=== PATIENT | female | born 1980 | race Caucasian/White ===

== ENCOUNTER 2022-02-03 16:39 | Emergency (ER) | payer OTHER, SELFPAY ==
[2022-02-03 16:58] VITALS: BP 96/57; PULSE 104; RESP 16; TEMP 37.6; O2SAT 96
--- NOTE | 2022-02-03 16:58 | ED.URI ---
HPI - URI/Sore Throat General Chief Complaint: Urogenital-Female Stated Complaint: flu Time Seen by Provider: 02/03/22 17:00 Source: patient, RN notes reviewed and old records reviewed Mode of arrival: ambulatory Limitations: no limitations History of Present Illness HPI Narrative: 41-year-old female presents to the [facility] with complaints urinary burning, right lower back pain since Sunday. Patient also reports having fevers as high as 104. Denies chest pain or abdominal pain. No nausea or vomiting. No CVA tenderness Related Data Home Medications Medication Instructions Recorded Confirmed bupropion HCl 300 mg 24 hr tablet, 300 mg PO DAILY 02/03/22 02/03/22 extended release buspirone 30 mg tablet 30 mg DAILY 02/03/22 02/03/22 carvedilol 6.25 mg tablet 6.25 mg DAILY 02/03/22 02/03/22 duloxetine 60 mg capsule,delayed 60 mg PO DAILY 02/03/22 02/03/22 release esomeprazole magnesium 40 mg 40 mg DAILY 02/03/22 02/03/22 capsule,delayed release gabapentin 300 mg capsule 300 mg DAILY 02/03/22 02/03/22 lisinopril 5 mg tablet 5 mg DAILY 02/03/22 02/03/22 orphenadrine citrate 100 mg 100 mg PO DAILY 02/03/22 02/03/22 tablet,extended release Allergies Allergy/AdvReac Type Severity Reaction Status Date / Time Contrast Media Allergy Unknown Hives / Uncoded 02/03/22 16:55 Red Face Review of Systems Review of Systems: All systems reviewed & are unremarkable except as noted in HPI and below Constitutional: Constitutional: Reports no additional constitutional complaints Eyes: Eyes: Reports no additional eye complaints ENT: Reports system reviewed and no additional complaints, except as documented Cardiovascular: Cardiovascular: Reports no additional cardiovascular complaints, Denies chest pain and Denies dyspnea Respiratory: Respiratory: Reports no additional respiratory complaints, Denies chest congestion, Denies cough and Denies dyspnea Gastrointestinal: Gastrointestinal: Reports no additional gastrointestinal complaints, Denies abdominal pain, Denies nausea and Denies vomiting Genitourinary: Genitourinary: Reports as per HPI, Reports nocturia and Reports dysuria Musculoskeletal: Musculoskeletal: Reports no additional musculoskeletal complaints Integumentary/Breasts: Skin/Breast: Reports system reviewed and no additional complaints, except as docu Neurologic: Reports system reviewed and no additional complaints, except as documented Psychiatric: Psychiatric: Reports no additional psychiatric complaints Allergic/Immunologic: Allergic/Immunologic: Reports no additional allergic/immunologic complaints PMF Past Medical History Medical History (Updated 02/04/22 @ 15:42 by Paula Ferguson APRN) Anxiety and depression History of cardiomyopathy History of high blood pressure Family History Family History Grandparent Hypertension Diabetes mellitus Father Family history of diabetes mellitus in first degree relative Family history of lung cancer, Onset Age: 63 Other Family history of malignant neoplasm of male breast Social History Social History Smoking status: Never smoker Second hand tobacco smoke exposure: No Alcohol intake: never Comments At the time of my signature, I reviewed and agree with the nursing past medical, surgical, social, and family history. There is no relevant family history pertinent to the patient complaint. Exam Const: General: cooperative, comfortable, no acute distress, well developed, alert, ill appearing chronically; not acutely and well nourished Nutritional Appearance: well nourished Orientation/consciousness: patient oriented x3 Limitations: no limitations HENMT: Head: normal to inspection Ears: hearing grossly normal bilaterally and external ears normal Face/Nose/Sinus: Normal external nose present, Normal nares present, Normal nasal muc
== END 2022-02-03 17:21 | disposition home or self-care (01) ==
PROVIDERS: Emergency Provider Nurse Practitioner
DX: N39.0 Urinary tract infection, site not specified (principal); F41.9 Anxiety disorder, unspecified; F32.A Depression, unspecified; I10 Essential (primary) hypertension; I42.9 Cardiomyopathy, unspecified
CPT/HCPCS: 81003; 87077; 87086; 87186; 99203; G0463